=== PATIENT | female | born 1995 | race Two or more races ===

== ENCOUNTER 2022-11-15 15:53 | Emergency (ER) | payer OTHER ==
[~2022-11-15] VITALS: Ht 149.9 cm; Wt 65.8 kg
[2022-11-15] MEDS ORDERED: MONTELUKAST SODI4 M1 PO (16:34)
[2022-11-15] MEDS ORDERED: PROVENTIL HFA6.7 GM IH (22:13)
== END 2022-11-15 22:24 | disposition home or self-care (01) ==
LOC: ER 15:53
PROVIDERS: General Practice
DX: B34.9 Viral infection, unspecified (principal); R50.9 Fever, unspecified; Z20.822 Contact with and (suspected) exposure to COVID-19